=== PATIENT | female | born 2000 | race Two or more races ===

== ENCOUNTER 2021-09-18 08:42 | Emergency (ER) | payer SELFPAY ==
[2021-09-18 09:44] LABS: BASOPHIL 0.6 % (0-2); EOSINOPHIL 2.3 % (0-5); HCT 39.5 % (37.0-47.0); HGB 12.6 g/dl (12.5-16.0); LYMPHOCYTE 19.6 % (15-48); MCH 29.2 pg (25.0-31.0); MCHC 31.9 g/dL (32.0-36.0); MCV 91.4 fL (78.0-100.0); MONOCYTE 9.8 % (0-12); MPV 10.1 fL (6.0-9.5); NEUTROPHIL 67.4 % (41-80); NRBC 0; PLT 238 K/uL (150-400); RBC 4.32 M/uL (4.20-5.40); RDW 13.1 % (11.5-14.0)
[2021-09-18 10:00] LABS: ALBUMIN 3.9 g/dL (3.4-5.0); BILIRUBIN - TOTAL 0.8 mg/dL (0.2-1.0); BUN/CREAT RATIO (CALC) 16.2 RATIO; CREATININE 0.8 mg/dL (0.51-0.95); GLOBULIN (CALCULATION) 3.7 g/dL; TOTAL PROTEIN 7.6 g/dL (6.4-8.2)
[2021-09-18] MEDS ORDERED: AUGMENTIN 875-1 EACH PO (12:31)
== END 2021-09-18 12:41 | disposition home or self-care (01) ==
LOC: FER 08:42 → EDSEX 08:42 → FER 12:41
PROVIDERS: Emergency Medicine
DX: I88.9 Nonspecific lymphadenitis, unspecified (principal)
CPT/HCPCS: 36415; 80053; 85025; Q9967